=== PATIENT | male | born 1960 | race Caucasian/White ===

== ENCOUNTER 2020-03-26 07:19 | Outpatient (CLI) | payer OTHER, SELFPAY ==
--- NOTE | ~2020-03-26 | CT_ITS ---
EXAMINATION: CT abdomen pelvis wo/w con DATE: 03/26/2020 08:44 INDICATION: Microscopic hematuria. TECHNIQUE: Computed tomography (CT) of the abdomen and pelvis was performed without and with intraven ous contrast using a total of 130 mL Omnipaque-350 intravenous contrast with a double-bolus technique for simultaneous opacification of the renal parenchyma and renal collecting system. Automated exposu re control and iterative reconstruction technique were employed. The dose-length product was 2544.76 mGy-cm. COMPARISON: CT abdomen and pelvis 08/31/2017 FINDINGS: The visualized portions of the lung bases demonstrate mild atelectasis. No pleural effusion. The hear t size is normal. No pericardial effusion. There is a small sliding hiatal hernia. There is diffuse h epatic steatosis. Calcifications in the liver and spleen are consistent with old granulomatous diseas e. The gallbladder, pancreas, and adrenal glands are normal. There is focal cortical volume loss in r ight kidney. The left kidney is normal. The right ureter demonstrates an abnormal site of insertion, more anterior than expected. The left ureter is not well opacified proximally. There is diffuse wall thickening of the bladder with small diverticula. There is a 5.3 cm stone in the bladder. The prostat e is moderately enlarged. There is a right inguinal hernia containing fat. Prominent fat in the left inguinal canal may be a hernia. There are no dilated loops of bowel. The appendix is normal. There ar e no pathologically enlarged lymph nodes. There is no free intraperitoneal fluid. There is mild thora columbar spondylosis. IMPRESSION: 1. 5.3 cm stone in the bladder. 2. Diffuse wall thickening of the bladder with small diverticula, which may be secondary to chronic o utlet obstruction from the moderately enlarged prostate. 3. Abnormal site of insertion of the right ureter, which is more anterior than expected. Reviewed, dictated and finalized at location A. IMPRESSION: 1. 5.3 cm stone in the bladder. 2. Diffuse wall thickening of the bladder with small diverticula, which may be secondary to chronic outlet obstruction from the moderately enlarged prostate. 3. Abnormal site of insertion of the right ureter, which is more anterior than expected.
[2020-03-26 08:23] LABS: Estimated Glomerular Filt Rate > 60
== END 2020-03-26 07:20 | disposition home or self-care (01) ==
LOC: ANHIMG 07:29
PROVIDERS: Visit Provider Urology
DX: R31.29 Other microscopic hematuria (principal); N21.0 Calculus in bladder; N32.9 Bladder disorder, unspecified; N40.0 Benign prostatic hyperplasia without lower urinary tract symptoms
CPT/HCPCS: 36415; 74178; Q9967

== ENCOUNTER 2020-04-07 00:14 | Outpatient (CLI) | payer OTHER, SELFPAY ==
[2020-04-07 17:13] LABS: SARS-CoV-2 RNA PCR Negative
== END 2020-04-07 00:15 | disposition home or self-care (01) ==
LOC: ANHCOVIDDT 00:15
PROVIDERS: Visit Provider Urology
DX: Z01.812 Encounter for preprocedural laboratory examination (principal); Z11.59 Encounter for screening for other viral diseases
CPT/HCPCS: 87635; C9803; U0003

== ENCOUNTER 2020-04-09 00:57 | Day surgery (SDC) | payer OTHER, SELFPAY ==
[2020-03-26 15:33] VITALS: BMI 30.9
[2020-04-09] VITALS (11 sets, daily range): BP systolic 121–153; BP diastolic 56–92; PULSE 61–79; RESP 12–20; TEMP 36.6–37.2; O2SAT 94–100
--- NOTE | 2020-04-09 09:23 | WPDANESEPPF ---
Anes - Initial Pre Proc Eval Procedure: Operation Date: 04/09/20 13:00 Proposed Procedures p Open Cystolithotomy - Ace Macias MD Date/Time: 04/09/20 09:23 Surgeon: Ace Macias MD Pre Op Diagnosis: ureteral stone Patient Data Age: 60 Gender: M Height: 1.85 m Weight: 106.59 kg Allergies Allergy/AdvReac Type Severity Reaction Status Date / Time No Known Allergies Allergy Verified 04/09/20 11:27 Home Medications Medication Instructions Recorded Confirmed Type amlodipine-benazepril 1 cap PO DAILY 03/26/20 04/09/20 History ascorbic acid (vitamin C) [Vitamin 1 g PO DAILY 03/26/20 04/09/20 History C] cyanocobalamin (vitamin B-12) 1,000 mcg PO DAILY 03/26/20 04/09/20 History [Vitamin B-12] tadalafil 5 mg PO DAILY 03/26/20 04/09/20 History Patient hx anesthesia problems: none Family hx anesthesia problems: none [facility] Past Medical History Medical History (Updated 04/09/20 @ 09:24 by Luiz Jennings MD) Bladder stone HTN (hypertension) Obesity Anes - Eval Final PreProcedure Day of Procedure 04/09/20 09:23 Patient weight: obese Heart: regular rate and rhythm Lungs: clear to auscultation and normal air movement Airway: Mallampati scale class II Neurological: alert and oriented Last oral intake: >/= 8 hours ASA classification: II Emergent: no Anesthetic plan: proceed Anesthesia type and monitoring: general LMA Informed Consent: The patient's anesthetic plan and its attendant risks and benefits were discussed with the patient/family/POA. Questions were solicited and answers provided to the satisfaction of the patient/family/POA.
[2020-04-09] MEDS: LACTATED RINGERS 1,000 ML 30 ML IV CONT ×2 (11:50→15:36)
--- NOTE | 2020-04-09 13:13 | WPDHPUPDATE1 ---
History and Physical Update Update Date/Time: 04/09/20 13:13 History and Physical has been reviewed, including an updated exam of the patient. There are NO changes in the patient's condition. Risks, benefits, and alternatives have been discussed and questions answered. Patient agrees to proceed with procedure.
[2020-04-09] MEDS: ceFAZolin 2 GM/D5W 50 ML 2 GM/50 ML BAG IVPB (13:20)
--- NOTE | 2020-04-09 16:16 | SUR.PHASEI ---
[id number] updated spouse on pt condition
--- NOTE | 2020-04-09 16:20 | SUR.PHASEI ---
[id number] sbar faxed floor notified
--- NOTE | 2020-04-09 16:45 | ADMGEN ---
This patient, Theo Calderon, was admitted to 3 [facility] Surg Room 310-01 @ 7285. Patient/family oriented to hospital policies and general routines including ID bracelet, bed and alarms, visiting hours, pain management, procedures, bathroom and other care routines, personal items, smoking policy, room service/diet, and visiting hours. Valuables list has been completed. Information on how to activate the Rapid Response Team has been discussed. Patient/Family are encouraged to report perceived risks to care and to ask questions if they do not understand what they are told or what they should do.
[2020-04-09] MEDS: LACTATED RINGERS 1,000 ML 125 ML IV CONT (17:07)
[2020-04-09] MEDS: DOCUSATE SODIUM 100 MG CAPSULE PO (17:08)
--- NOTE | 2020-04-09 21:33 | OP_ITS ---
DATE OF PROCEDURE: 04/09/2020 PREOPERATIVE DIAGNOSIS: Bladder stone. POSTOPERATIVE DIAGNOSIS: Bladder stone. PROCEDURE PERFORMED: Open cystolithotomy. INDICATION FOR PROCEDURE: The patient is a very pleasant gentleman who presented to the office. He was found to have a large bladder stone measuring approximately 6 cm in size. I discussed options, risks, benefits, and alternatives were discussed and the patient has agreed to proceed with open cystolithotomy. He understands the risks of procedure including, but not limited to, infection, bleeding, pain, injury to surrounding structures, urine leak, need for additional operations, and recurrence. He agrees to proceed. DESCRIPTION OF OPERATION: Informed consent was obtained. The patient was taken to the operating room. He was given preoperative IV antibiotics. He was induced with anesthesia. He was shaved, he was prepped and draped in normal sterile fashion in the supine position. A 20-Martiniquais catheter was inserted with return of clear yellow urine. We then made a 6 cm vertical low midline incision. We dissected down to the external oblique fascia. The fascia was opened. We then the rectus muscle to identify the bladder. The bladder was then filled. Stay sutures were placed. We then opened the bladder anteriorly near the dome. The bladder was rather thickened with detrusor muscle. We identified the large stone in the bladder. It was grasped with a forceps and removed through the anterior cystotomy. We then irrigated copiously. We inspected the bladder. The ureteral orifices were identified with urine draining nicely. We then closed the bladder in 2 layers of 2-0 Vicryl suture, 1st to mucosa and serosa, 2nd to detrusor. We then filled the bladder with over 300 mL of saline and there was no leak. The bladder was then emptied into the Pena catheter. We then irrigated copiously. There was good hemostasis. We placed a 15 Brandon drain on the left side through a separate stab incision. We then closed the external oblique fascia with a 0 looped PDS suture. We then closed deep subcutaneous tissue with a 3-0 Vicryl suture and skin with a 4-0 Monocryl subcuticular closure. Surgical glue was applied. The catheter was left to gravity drainage, OLIVA to bulb suction. The patient was awakened and taken to recovery room in stable condition. IV FLUIDS: Per anesthesia. COMPLICATIONS: None. ESTIMATED BLOOD LOSS: 50 mL. FOLLOWUP: The patient will remain in the hospital overnight. We will check labs in the morning and likely remove OLIVA drain. We will plan for Pena catheter removal in 10-14 days with a cystogram prior to removal. D I MT: Britton
[2020-04-10] MEDS: LACTATED RINGERS 1,000 ML 125 ML IV CONT (00:53)
[2020-04-10 02:00] VITALS: BP 136/65; PULSE 72; RESP 18; TEMP 37.2; O2SAT 94
[2020-04-10 06:00] VITALS: BP 145/71; PULSE 66; RESP 18; TEMP 37.2; O2SAT 94
[2020-04-10 06:35] LABS: Hematocrit 38.9 % (42.0-52.0); Hemoglobin 13.2 g/dL (14.0-18.0)
[2020-04-10 06:53] LABS: Blood Urea Nitrogen 12 mg/dL (9-20); Calcium 8.3 mg/dL (8.4-10.2); Carbon Dioxide 27 mmol/L (22-30); Chloride 101 mmol/L (98-107); Estimated CRCL calculation 127 ml/min; Estimated Glomerular Filt Rate > 60; Glucose 108 mg/dL (75-110); Potassium 3.8 mmol/L (3.4-5.0); Sodium 134 mmol/L (137-145)
[2020-04-10] MEDS: DOCUSATE SODIUM 100 MG CAPSULE PO (09:14)
[2020-04-10] MEDS: AMLODIPINE BESYLATE 5 MG TABLET PO (09:14)
[2020-04-10] MEDS: lisinopriL 10 MG TABLET PO (09:14)
[2020-04-10] MEDS: ENOXAPARIN 30 MG/0.3 ML SYRINGE SUB-Q (09:15)
--- NOTE | 2020-04-10 09:42 | WPDANESPN ---
Anes - Prog Note Post-Op Date/Time: 04/10/20 09:42 Cardiovascular status: normal Respiratory status: normal Airway patency: baseline Mental status: baseline Post-Op hydration status: normal Vital Signs: Last Vital Signs Temp 37.2 C 04/10/20 06:00 Pulse 66 04/10/20 06:00 Resp 18 04/10/20 06:00 BP 145/71 H 04/10/20 06:00 Pulse Ox 94 04/10/20 06:00 I/O: Intake & Output 04/09/20 04/10/20 04/10/20 23:59 07:59 15:59 Intake Total 1060 1450 300 Output Total 233 1010 Balance 827 440 300 Laboratory Tests 04/10/20 06:15 04/10/20 06:15 04/10/20 04/10/20 06:15 06:15 Hgb 13.2 L Hct 38.9 L Sodium 134 L Potassium 3.8 Chloride 101 Carbon Dioxide 27 BUN 12 Creatinine 0.70 Estim Creat Clear Calc 127 Estimated GFR > 60 Glucose 108 Calcium 8.3 L Post-procedural complaints: none Patient Feedback: Patient satisfied with anesthetic care.
--- NOTE | 2020-04-10 09:45 | WPDUROPN2 ---
Progress Note: A&P Assessment and Plan (1) Bladder stone: Code(s): N21.0 - Calculus in bladder Status: Acute Assessment and Plan: Doing well POD #1 s/p open bladder stone extraction. Minimal OLIVA output - will remove. Home later this afternoon. Subjective Subjective Date/Time Seen: 04/10/20 09:45 Comfortable, tolerating diet. Review of Systems Cardiovascular: Cardiovascular: Denies chest pain, Denies lightheadedness, Denies palpitations and Denies dyspnea Respiratory: Respiratory: Denies dyspnea Gastrointestinal: Gastrointestinal: Denies diarrhea, Denies nausea and Denies vomiting Genitourinary: Genitourinary: Denies hematuria and Denies dysuria Endocrine: Endocrine: Denies palpitations Exam Const: General: no acute distress Resp: Effort & Inspection: normal respiratory effort GI: Inspection: non-distended and other (incisions clean and dry / minimal OLIVA output) GI Palp: No abdominal tenderness and No Guarding due to palpation present (GI) Auscultation: normal bowel sounds Urinary Catheter: Urinary Catheter: patent and draining and urine clear Objective Data Vital Signs Vital Signs: Vital Signs - 24 hr 04/09/20 11:41 04/09/20 15:25 04/09/20 15:40 Temperature 98.1 F 97.9 F Pulse Rate 66 79 68 Respiratory Rate 20 12 16 Blood Pressure 153/92 H 149/77 H 121/63 Pulse Oximetry 97 100 100 04/09/20 15:55 04/09/20 16:10 04/09/20 16:25 Temperature Pulse Rate 69 68 66 Respiratory Rate 16 16 14 Blood Pressure 123/65 133/69 130/70 Pulse Oximetry 95 94 97 04/09/20 16:34 04/09/20 16:49 04/09/20 17:19 Temperature 97.8 F 98.4 F 98.9 F Pulse Rate 71 70 72 Respiratory Rate 16 18 16 Blood Pressure 128/63 132/65 130/66 Pulse Oximetry 95 98 96 04/09/20 18:19 04/09/20 22:19 04/10/20 02:00 Temperature 98.9 F 98.9 F 98.9 F Pulse Rate 73 61 72 Respiratory Rate 16 16 18 Blood Pressure 134/68 127/56 L 136/65 Pulse Oximetry 100 95 94 04/10/20 06:00 Temperature 98.9 F Pulse Rate 66 Respiratory Rate 18 Blood Pressure 145/71 H Pulse Oximetry 94 Intake/Output Intake/Output: Intake & Output 04/07/20 04/08/20 04/09/20 04/10/20 23:59 23:59 23:59 23:59 Intake Total 1210 1750 Output Total 233 1010 Balance 977 740 Meds/Results Medications: Active Medications Generic Name Dose Route Start Last Admin Trade Name Freq PRN Reason Stop Dose Admin Hydrocodone Bitart/Acetaminophen 1 tab 04/09/20 16:34 04/10/20 05:18 Rothsay 5-325 Mg PO 1 tab Q6H PRN Administration Pain Rated 1-3 Hydrocodone Bitart/Acetaminophen 2 tab 04/09/20 16:34 04/09/20 17:55 Rothsay 5-325 Mg PO 2 tab Q6H PRN Administration Pain Rated 4-6 Amlodipine Besylate 5 mg 04/10/20 09:00 04/10/20 09:14 Norvasc PO 5 mg DAILY MEDARDO Administration Docusate Sodium 100 mg 04/09/20 17:00 04/10/20 09:14 Colace Capsule PO 100 mg BID MEDARDO Administration Enoxaparin Sodium 30 mg 04/10/20 09:00 04/10/20 09:15 Lovenox SUB-Q 30 mg DAILY MEDADRO Administration Hyoscyamine 0.125 mg 04/09/20 16:34 Levsin Tablet SUBLINGUAL Q4H PRN Bladder Spasm Lactated Ringer's 1,000 mls @ 125 mls/hr 04/09/20 16:34 04/10/20 00:53 Lr - Lactated Ringers Iv IV CONT 125 mls/hr .Q8H MEDARDO Administration Cefazolin Sodium 1 gm in 50 mls @ 100 mls/hr 04/09/20 22:00 04/10/20 05:50 Ancef 1 Gm/D5w 50 Ml Pm IVPB Infused Q8HR MEDARDO Infusion Lisinopril 10 mg 04/10/20 09:00 04/10/20 09:14 Prinivil PO 10 mg QAM MEDARDO Administration Morphine Sulfate 1 mg 04/09/20 16:34 Morphine Sulfate Inj IV PUSH Q2H PRN Pain Rated 7-10 Naloxone HCl 0.1 mg 04/09/20 16:34 Narcan IV PUSH Q2M PRN Opiate Reversal Ondansetron HCl 4 mg 04/09/20 16:34 Zofran Inj IV PUSH Q6H PRN Nausea And Vomiting Labs Labs: Laboratory Results - last 24 hr 04/10/20 04/10/20 06:15 06:15 Hgb 13.2 L Hct 38.9 L Sod
[2020-04-10 10:11] VITALS: BP 164/70; PULSE 77; RESP 18; TEMP 36.9; O2SAT 97
--- NOTE | 2020-04-10 14:29 | PC.NURSE ---
Pt has been discharged. Pt had IV removed, and OLIVA drain removed. Sent supplies for dressing change for OLIVA drain site and gave pt instructions. Pt had discharge instructions reviewed, and opportunity for questions was provided. Pt left with cruz catheter per Dr order, and was provided leg bags and a leg strap to secure catheter. Pt was assisted to the front of the building in a wheelchair, by staff.
== END 2020-04-10 13:45 | disposition home or self-care (01) ==
LOC: ANHSURGERY 11:01 → ANH3MEDSUR 04-10 09:53
PROVIDERS: Visit Provider Urology
PROC: (CPT 52352; principal; 2020-04-09 13:00)
DX: N21.0 Calculus in bladder (principal); I10 Essential (primary) hypertension; E66.9 Obesity, unspecified; Z68.31 Body mass index [BMI] 31.0-31.9, adult; Z79.899 Other long term (current) drug therapy
CPT/HCPCS: 51050; 36415; 80048; 82365; 85014; 85018; 88300; A9270; J0131; J0330; J0690; J1100; J1650; J2250; J2405; J2704; J3010; J7030; J7120

== ENCOUNTER 2020-04-23 09:07 | Outpatient (CLI) | payer OTHER, SELFPAY ==
--- NOTE | ~2020-04-23 | XR_ITS ---
EXAMINATION: CYSTOGRAM DATE: 04/23/2020 10:05 INDICATION: Status post bladder stone resection. TECHNIQUE: Initial polymerization engineer radiograph of the pelvis was performed. There was retrograde administration of Omnipaque 350 mixed with saline contrast into patient's existing cruz catheter. Fluoroscopic thuy ges of the pelvis were obtained. A post-void image was also performed. Fluoroscopy exposure time was 0.7 minutes. A total of 25 fluoroscopic images were recorded. FINDINGS: Bladder wall trabeculation likely moderate-sized bladder diverticulum along the left posterior wall o f the bladder. No residual bladder stone or stone fragments appreciated. No extraluminal contrast ext ravasation to suggest bladder leak. IMPRESSION: 1. No bladder leak. 2. Trabeculated bladder mucosa and bladder diverticulum likely sequela of chronic outlet obstruction. Reviewed, dictated and finalized at location A. IMPRESSION: 1. No bladder leak. 2. Trabeculated bladder mucosa and bladder diverticulum likely sequela of chron ic outlet obstruction.
== END 2020-04-23 09:08 | disposition home or self-care (01) ==
PROVIDERS: Visit Provider Urology
DX: N21.0 Calculus in bladder (principal)
CPT/HCPCS: 51600; 74430; Q9967

== ENCOUNTER 2023-03-16 11:15 | Outpatient (CLI) | payer OTHER, SELFPAY ==
--- NOTE | ~2023-03-16 | XR_ITS ---
Supine and upright views of the abdomen Clinical history: Bladder calculi Findings: Bowel gas pattern is nonspecific. No evidence for obstruction or free air. No abnormal mass lesion or calcification is seen. Osseous structures are intact. Impression: No significant abnormality is seen. Reviewed, dictated and finalized at [facility]. Impression: No significant abnormality is seen.
== END 2023-03-16 11:16 | disposition home or self-care (01) ==
LOC: ANHIMG 11:24
PROVIDERS: Visit Provider Urology
DX: N21.0 Calculus in bladder (principal)
CPT/HCPCS: 74018